=== PATIENT | female | born 2005 | race Caucasian/White ===

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

== ENCOUNTER 2024-12-06 00:20 | Emergency (ER) | payer MEDICAID, SELFPAY ==
[2024-12-06 00:39] VITALS: BP 132/64; PULSE 54; RESP 16; TEMP 36.6; O2SAT 100; BMI 31.1
[2024-12-06 01:15] LABS: MANUAL DIFF FLAG NO
[2024-12-06 01:17] LABS: Hematocrit 41.1 % (37.0-47.0); Hemoglobin 13.5 g/dl (12.0-16.0); Imm Gran Abs Auto 0.04 X10*3/uL (0.00-0.03); Imm Gran Pct Auto 0.3 % (0.0-0.4); Lymphocytes Absolute Auto 3.2 X10*3/uL (1.2-4.9); Mean Corpuscular HGB Conc 32.8 g/dl (31.0-35.0); Mean Corpuscular Hemoglobin 28.1 pg (27.0-33.0); Mean Corpuscular Volume 85.4 fL (80.0-98.0); NRBC Abs Auto 0.000 X10*3/uL (0.0-0.012); NRBC Pct Auto 0.0 /100WBC (0.0-0.2); Platelet Count 330 X10*3/uL (160-400); Red Blood Count 4.81 X10*6/uL (4.20-5.50); White Blood Count 13.1 X10*3/uL (4.8-10.8)
[2024-12-06 01:39] LABS: Alanine Aminotransferase 12 U/L (0-31); Albumin Level 4.6 g/dL (3.5-5.0); Alkaline Phosphatase 118 U/L (39-117); Anion Gap 14 (12-20); Aspartate Amino Transferase 20 U/L (5-31); Blood Urea Nitrogen 8 mg/dL (9-16); Calcium 9.3 mg/dL (8.4-10.2); Carbon Dioxide 25 mmol/L (22-29); Chloride 106 mmol/L (96-108); Creatinine Clr Calc Pharmacy 125.0; Estimated Glomerular Filt Rate > 60; Lipase 12 U/L (8-78); Potassium 3.8 mmol/L (3.3-5.1); Sodium 141 mmol/L (135-145); Total Protein 7.3 g/dL (6.5-8.0)
--- NOTE | 2024-12-06 02:07 | PC.NURSE ---
PT a/ox4, resting quietly in no acute distress. PT comes from waiting room endorsing nausea/vomiting for a few weeks, states she hasn't gotten her period since september concerned she is . HCG negative, WBC elevated. Provided pt urine cup for sample. PT ambulating to the bathroom , gait steady.
[2024-12-06 02:25] LABS: Appearance Urine Clear; Glucose Urine UA Negative (Negative); PH 5.5 (5.0-9.0); Specific Gravity - Urine 1.020 (1.005-1.025); UMIC TRIGGER UACC YES
--- NOTE | 2024-12-06 03:58 | ED.NAVMDI ---
HPI - Nausea/Vomiting/Diarrhea General Chief complaint: Nausea/Vomiting/Diarrhea Stated complaint: nauseous Time Seen by Provider: 12/06/24 03:32 Source: patient Mode of arrival: ambulatory Limitations: no limitations and physical limitation History of Present Illness ED Provider: Dr. Jocy Cano HPI Narrative: 19-year-old female with history of irregular menstrual cycles presenting with nausea and vomiting ongoing for the last 2 weeks or so. Describes associated lower abdominal cramping and fatigue. No reported diarrhea or constipation. Admits she has not had true periods since the middle of September. She did take a test which was negative. States before that she had not had a period in several months. Denies associated fever, cough or cold-type symptoms, chest pain, difficulty breathing, lower extremity edema or pain, known sick contacts, questionable food intake, recent travel. Related Data Previous Rx's ?Medication ?Instructions ?Recorded dicyclomine 20 mg tablet 20 mg PO TID #10 tabs 12/06/24 famotidine 20 mg tablet (Pepcid) 20 mg PO DAILY #30 tabs 12/06/24 ondansetron 4 mg disintegrating 4 mg PO Q8H PRN nausea and 12/06/24 tablet vomiting #10 tabs Allergies Allergy/AdvReac Type Severity Reaction Status Date / Time amoxicillin Allergy Hives Verified 12/06/24 00:44 Review of Systems Review of Systems: as per HPI, full review of systems performed and negative but for the above mentioned pertinent positives and negatives. [facility] Past Medical History Attestation statement: The following information was validated with the patient. [facility] Narrative: Denies alcohol or illicit substance use. Source: nursing notes reviewed Social History Social History Alcohol intake: current Alcohol intake frequency: holidays/special occasions only Smoked in Last 30 Days: No Use of substances other than those prescribed or required for medical reasons: Yes Substance Use Type: Marijuana Substance Use Frequency: Daily Advance Directives: No Do you have a plan to hurt others: No Plan Physical Exam Exam: Exam: GENERAL: Well-Appearing, conversant, no acute distress. SKIN: Normal skin color for ethnicity, warm, dry, no rashes noted. HEENT:? Normocephalic, atraumatic, no stridor, posterior oropharynx nonerythematous, dentition intact, EOMI. NECK: Soft, supple, full ROM, midline structures nontender, no step-offs, no deformities, no lymphadenopathy. CHEST: Heart regular rate and rhythm, no murmurs, symmetric chest rise and fall. PULMONARY: Clear to auscultation bilaterally, no labored breathing, no wheezes/rhales/rhonchi. ABDOMINAL: Soft, nondistended, nontender, quiet bowel sounds in all quadrants. : Deferred. MUSCULOSKELETAL: Normal tone, full range of motion, no deformities, no peripheral edema. NEURO: Alert and oriented x3, CN II through XII intact, equal strength and sensation bilateral upper and lower extremities, no focal neurologic deficits.? PSYCHIATRIC: Normal affect, fluid speech, good eye contact and appropriate demeanor. Vital Signs: Vital Signs: Last Vital Signs Temp 97.6 F 12/06/24 04:25 Pulse 48 L 12/06/24 04:25 Resp 14 12/06/24 04:25 BP 119/65 12/06/24 04:25 Pulse Ox 98 12/06/24 04:25 O2 Del Method Room Air 12/06/24 04:25 BMI result Body Mass Index 31.1 Medications Administered Discontinued Medications Generic Name Dose Route Start Last Admin Trade Name Freq PRN Reason Stop Dose Admin Dicyclomine HCl 20 mg 12/06/24 03:57 12/06/24 04:10 Dicyclomine Hcl 10 Mg Capsule PO 12/06/24 03:58 20 mg ONCE ONE Administration Famotidine 20 mg 12/06/24 03:57 12/06/24 04:10 Famotidine 20 Mg Tablet PO 12/06/24 03:58 20 mg ONCE ONE Administration Ondansetron HCl 4 mg 12/06/24 03:57 12/06/24 04:10 Ondansetron Odt 4 Mg Tab.Rapdis TRANSLINGU 12/06/24 03:58 4 mg ONCE ONE Administration Medical Decision Making Medical Decision Making MDM Narrative: Patient presents today with a chief complaint of vomiting. Differential diagnosis includes surgical emergency such as obstruction, enteritis, hyperglycemia, acidosis, food or drug ingestion, pancreatitis, CVA, allergic reaction such as anaphylaxis, cannabis hyperemesis syndrome or cyclic vomiting syndrome, among many others.? Patient is not showing signs of acute dehydration or hemodynamic instability.? They are having associated abdominal pain. ? Broad-based work-up was initiated based on above history and physical exam. Workup reassuring today. No evidence of obstruction, severe infection. She is significantly improved after zofran, bentyl and pepcid. Clinical picture is consistent with gastritis vs GERD. Using shared decision making, plan for discharge home to follow-up with primary care and/or specialist. Patient understands and agrees with plan for discharge. Discharged home in stable condition. Differential Diagnosis Differential Diagnoses: The differential diagnosis associated with the presentation includes (as above) Admission/Observation Consideration of admission/observation: Escalation of care including admission/observation considered Lab Data MDM Lab Attestation statement: I reviewed the patient's lab results. 12/06/24 01:09 12/06/24 01:09 Labs: Lab Results 12/06/24 12/06/24 Range/Units 01:09 02:14 WBC 13.1 H (4.8-10.8) X10*3/uL RBC 4.81 (4.20-5.50) X10*6/uL Hgb 13.5 (12.0-16.0) g/dl Hct 41.1 (37.0-47.0) % MCV 85.4 (80.0-98.0) fL MCH 28.1 (27.0-33.0) pg MCHC 32.8 (31.0-35.0) g/dl RDW 13.3 (11.0-16.0) % Plt Count 330 (160-400) X10*3/uL MPV 10.4 (9.4-12.3) fL Immature Gran % (Auto) 0.3 (0.0-0.4) % Neut % (Auto) 67.9 (45-73) % Lymph % (Auto) 24.6 (20-40) % [place] % (Auto) 6.0 (2-11) % Eos % (Auto) 1.0 (0-4) % Baso % (Auto) 0.2 (0-2) % Lymph # (Auto) 3.2 (1.2-4.9) X10*3/uL [place] # (Auto) 0.8 (0.1-1.2) X10*3/uL Eos # (Auto) 0.1 (0.0-0.4) X10*3/uL Baso # (Auto) 0.0 (0.0-0.2) X10*3/uL Abs Immat Gran (auto) 0.04 H (0.00-0.03) X10*3/uL Absolute Neuts (auto) 8.9 H (2.0-8.3) x10*3/uL Absolute Nucleated RBC 0.000 (0.0-0.012) X10*3/uL Nucleated RBC % (auto) 0.0 (0.0-0.2) /100WBC Sodium 141 (135-145) mmol/L Potassium 3.8 (3.3-5.1) mmol/L Chloride 106 (96-108) mmol/L Carbon Dioxide 25 (22-29) mmol/L Anion Gap 14 (12-20) BUN 8 L (9-16) mg/dL Creatinine 0.69 (0.5-1.4) mg/dL Estim Creat Clear Calc 125.0 Estimated GFR > 60 Random Glucose 90 (60-115) mg/dL Calcium 9.3 (8.4-10.2) mg/dL Total Bilirubin 0.8 (0.0-1.0) mg/dL Direct Bilirubin 0.3 (0.0-0.5) mg/dL AST 20 (5-31) U/L ALT 12 (0-31) U/L Alkaline Phosphatase 118 H (39-117) U/L Total Protein 7.3 (6.5-8.0) g/dL Albumin 4.6 (3.5-5.0) g/dL Lipase 12 (8-78) U/L Beta HCG, Quant < 2 mIU/mL Urine Color Yellow Urine Appearance Clear Urine pH 5.5 (5.0-9.0) Ur Specific [place] 1.020 (1.005-1.025) Urine Protein Negative (Neg-Trace) mg/dL Urine Glucose (UA) Negative (Negative) mg/dL Urine Ketones 40 (Negative) mg/dL Urine Blood Negative (Negative) Urine Nitrite Negative (Negative) Ur Leukocyte Esterase Trace H (Negative) Urine RBC 0-2 (0-2) /HPF Urine WBC 0-5 (0-5) /HPF Ur Squamous Epith Cells 0-2 (0-2) /HPF Urine Bacteria None Seen (None Seen) Hyaline Casts 0-2 (0-2) /LPF Independent Historian Clinical information obtained from an independent historian. History obtained from or confirmed by: Parent Prescription Management I considered prescription management with: Pain Medication Discharge Plan Discharge Clinical Impression: Irregular menses, GERD (gastroesophageal reflux disease), Nausea & vomiting Patient Disposition: Home, Self-Care Instructions: Abnormal (Dysfunctional) Uterine Bleeding (ED), GERD (Gastroesophageal Reflux Disease) (ED) Additional Instructions: Drink plenty of foods over the next several days. Use Zofran for nausea. Use Pepcid for antacid. Return to the emergency department with any new or worsening symptoms including: Worsening abdominal pain despite medications, inability to tolerate food or drink, fevers greater than 100?, any new symptom that concerns you. Prescriptions: New dicyclomine 20 mg tablet 20 mg PO TID Qty: 10 0RF ondansetron 4 mg tablet,disintegrating 4 mg PO Q8H PRN (Reason: nausea and vomiting) Qty: 10 0RF famotidine [Pepcid] 20 mg tablet 20 mg PO DAILY Qty: 30 0RF Interventions: ED Discharge Assessment Last Done: 12/06/24 04:25 Discharge Date/Time: 12/06/24 04:27 Print Language: Serbian
[2024-12-06 04:25] VITALS: BP 119/65; PULSE 48; RESP 14; TEMP 36.4; O2SAT 98
== END 2024-12-06 04:27 | disposition home or self-care (01) ==
PROVIDERS: Emergency Provider Emergency Medicine; PCP Pediatrics
DX: N92.6 Irregular menstruation, unspecified (principal); K21.9 Gastro-esophageal reflux disease without esophagitis; R11.2 Nausea with vomiting, unspecified; R10.30 Lower abdominal pain, unspecified
CPT/HCPCS: 36415; 80053; 81001; 82248; 83690; 84702; 85025; 99283; 99284

== ENCOUNTER 2025-01-24 11:40 | Outpatient (REF) | payer MEDICAID, SELFPAY ==
--- OUTSIDE RECORDS SUMMARY | 2025-01-24 10:45 | XMS_ITS | Encounter Summary ---
Author Organization [employer] Address [address] [place] [address] Care Team Providers Care Physician Vice President Name Role Phone Heather Chambers CNP Primary Care Provider [phone] Reason for Referral * Imaging (Routine) - Authorized Specialty Diagnoses / Procedures Referred By Contac t Referred To Contact Radiology Diagnoses Irregular periods Pelvic pain Procedures Us Pelvis complete Heather Chambers CNP [address] [place] [address] Phone: tel: fax: [address] Phone: tel: fax: Referral ID Status Reason Start Date Expiration Date V isits Requested Visits Authorized [id number] Authorized 01/24/2025 01/24/2026 1 1 * Imaging (Routine) - Authorized Specialty Diagnoses / Procedures Referred By Contac t Referred To Contact Radiology Diagnoses Irregular periods Pelvic pain Procedures US Pelvis Transvaginal Heather Chambers CNP [address] [place] [address] Phone: tel: fax: [address] Phone: tel: fax: Referral ID Status Reason Start Date Expiration Date V isits Requested Visits Authorized [id number] Authorized 01/24/2025 01/24/2026 1 1 * Consultation (Routine) - Authorized Specialty Diagnoses / Procedures Referred By Kyle matthews Referred To Contact Behavioral Health Diagnoses Anxiety Heather Chambers CNP [address] [place] [address] Phone: tel: fax: Referral ID Status Reason Start Date Expiration Date Visits Requested Visits Authorized [id number] Authorized Specialty Services Required 01/24/2025 01/24/2026 1 1 Encounter Details Date Type Department Care Team ([facility] st Contact Info) Description 01/24/2025 10:45 AM EDT Office Visit [facility] [address] [place] [address] Heather Chambers CNP [address] [place] [address] Screening for STD (sexually transmitted disease) (Primary Dx); Encounter for physical examination; Anxiety; Irregular periods; Pelvic pain; PCOS (polycystic ovarian syndrome); Dietary counseling; Exercise counseling; Overweight Social History Tobacco Use Types Packs/Day Years Used Date Smoking Tobacco: Never Passive Smoke Exposure: Never Smokeless Tobacco: Never Tobacco Cessation:Counseling Given: Not Answered Alcohol Use Standard Drinks/Week Comments Yes 0 (1 standard drink = 0.6 oz pur e alcohol) only socially. Depression Answer Date Recorded Patient Health Questionnaire-9 Score 0 09/17/2023 Patient Health Questionnaire-9 Score 0 09/17/2023 Last PHQ-9: Questionnaire Data Not on file 0 09/17/2023 Housing Stability Answer Date Recorded What is your housing situation today? I have chato kaufman 01/17/[address] you li ve. Do you have problems with any of the following? None of the above 01/17/2025 Food Insecurity Answer Date Recorded Within the past 12 months, y ou worried that your food would run out before you got money to buy more: Never True 01/17/2025 Within the past 12 months,th e food you bought just didn't last and you didn't have enough money to get more: Never True 02/2025 Transportation Answer Date Recorded In the past 12 months, has l ack of transportation kept you from medical appts, meetings, work or from getting things needed for daily living? No 01/17/2025 Utilities Answer Date Recorded In the past 12 months, has t he electric, gas, oil or water company threatened to shut off services in your home? No 01/17/2025 Depression Answer Date Recorded Patient Health Questionnaire-2 Score 0 09/17/2023 Internet Access Answer Date Recorded Internet Access Q1 Yes 01/17/2025 Internet Access Q2 Not on file 01/17/2025 Comments No Sex and Gender Information Value Date Recorded Sex Assigned at Female 03/09/2022 10:38 AM EDT Legal Sex Female 10:38 AM EDT Gender Identity Female 03/09/2022 10:38 AM EDT Sexual Orientation Choose not to disclose 2021 10:38 AM EDT documented as of this encounter Last Filed Vital Signs Vital Sign Reading Time Taken Comments Blood Pressure 132/90 01/24/2025 10:51 AM EDT Pulse 78 01/24/2025 10:51 AM EDT Temperature 36.7 C (98.1 F) 01/24/2025 10:51 AM EDT Respiratory Rate 14 01/24/2025 10:51 AM EDT Oxygen Saturation 99% 01/24/2025 10:51 AM EDT Inhaled Oxygen Concentration - - Weight 73.9 kg (163 lb) 01/24/2025 10:51 AM EDT Height 157.5 cm (5' 2 ) 01/24/2025 10:51 AM EDT Body Mass Index 29.81 01/24/2025 10:51 AM EDT documented in this encounter Progress Notes * Heather Chambers CNP - 01/24/2025 10:45 AM EDT Subjective: Verna Fontanez is a 19 y.o. female who presents to the office for a transfer patient visit. Previous PCP Dr. Kala Terrazas. Interim history: Pt seen in [facility] ED 11/2024 for n/v x 2 weeks. Current concerns: Irregular periods, last period in September 2024 experienced severe cramping since December 2024, lasting about a month, unresponsive to Tylenol, resolves on its own.. Reports irregular periods since PCOS diagosis at age 13. Previously used Nexplanon, Lucila, and another control; discontinued due to side effects and ineffectiveness for period regulation. Not currently interested in contraception. Anxiety: Reports daily anxiety, increased frequency over past couple of months, cries every morning, had four anxiety attacks last month while in [place]. - Previously prescribed anxiety medication in high school, discontinued due to drowsiness; only took at night. - Uses cold showers and other non-pharmacologic methods to cope with anxiety. - Denies self-harm and suicidal ideation. Problem List[1] Surgical History[2] Family History[3] Social History Living situation: has safe secure housing Employment/Education: works in senior living Diet/exercise: Substance use: -alcohol none -tobacco none -opioids none Sexual activity: AMAB partner, feels safe in relationship, agrees to STI testing today. Not actively seeking but OK if it happens. Contraception: none Mental health: No data recorded No data recorded Patient's last menstrual period was 09/07/2024. Allergies[4] Review of Systems Vitals: 01/24/25 1051 BP: (!) 132/90 BP Location: Left arm Patient Position: Sitting BP Cuff Size: Adult Pulse: 78 Resp: 14 Temp: 98.1 ??F (36.7 ??C) TempSrc: Oral SpO2: 99% Weight: 163 lb (73.9 kg) Height: 5' 2 (1.575 m) Physical Exam Constitutional: Appearance: Normal appearance. She is normal weight. HENT: Head: Normocephalic and atraumatic. Eyes: Extraocular Movements: Extraocular movements intact. Pupils: Pupils are equal, round, and reactive to light. Cardiovascular: Rate and Rhythm: Normal rate and regular rhythm. Pulses: Normal pulses. Heart sounds: Normal heart sounds. No murmur heard. No friction rub. No gallop. Pulmonary: Effort: Pulmonary effort is normal. No respiratory distress. Breath sounds: Normal breath sounds. No wheezing or rales. Abdominal: General: Abdomen is flat. There is no distension. Palpations: Abdomen is soft. There is no mass. Tenderness: There is no abdominal tenderness. There is no guarding or rebound. Hernia: No hernia is present. Neurological: General: No focal deficit present. Mental Status: She is alert and oriented to person, place, and time. Psychiatric: Mood and Affect: Mood normal. Behavior: Behavior normal. Thought Content: Thought content normal. Judgment: Judgment normal. Assessment & Plan Screening for STD (sexually transmitted disease) Will obtain routine STI/STD screening and call pt with results For routine OBGYN care she would like to be referred externally however she is changing her insurance in 1 month so we will await insurance change until referral is placed. Orders: Chlamydia/N. Gonorrhoeae RNA, TMA, Vaginal HIV-1/2 Antigen and Antibodies, Fourth Generation, with Reflexes; Future Hepatitis C Antibody with Reflex to HCV, RNA, Quantitative, Real-Time PCR; Future RPR (Monitor) with Reflex to Titer; Future Encounter for physical examination 19 y.o female with irregular periods, PCOS, and anxiety. Normal physical exam. Plan to obtain routine bloodwork Plan to refer for vision, she has dentist and is UTD IMMs UTD, she reports she had flu shot already Pap not due until 11/2025, will refer to OBGYN once insurance change finalized Orders: CBC auto differential; Future Basic Metabolic Panel; Future TSH W/Reflex to FT4; Future Hemoglobin A1c; Future Anxiety Today we discussed pharmacologic and nonpharmacologic tx for anxiety Pt would like to be referred to psychotherapy, she is not interested in meds at this time, she willreach out if she needs any additional support Orders: Referral to Behavioral Health; Future Irregular periods Will obtain hcg to r/o Will also obtain lab studies to further evaluate her irregular periods Considered hormonal control for period regulation, pt not interested at this time Orders: hCG, Total, Quantitative; Future US Pelvis Transvaginal; Future Us Pelvis complete; Future Pelvic pain Will obtain STI screening Will obtain repeat pelvic US Will refer to tow motor mechanic as needed. Orders: US Pelvis Transvaginal; Future Us Pelvis complete; Future PCOS (polycystic ovarian syndrome) Plan: -obtain lab studies to further evaluate for metabolic dysfunction. -refer to OBGYN as requested by pt -Recommendations include Lifestyle management is foundational and should be recommended to all patients, regardless of BMI. This includes a balanced diet, regular physical activity, and weight management. No specific diet orexercise regimen has demonstrated superiority; the focus should be on sustainable, healthy behaviors.[2-6] Even modest weight loss (5-10%) can improve metabolic, reproductive, and menstrual outcomes.[1] For pharmacologic management of irregular periods, combined oral contraceptive pills (COCPs) are first-line therapy for those not seeking , as they regulate menstrual cycles, reduce hyperandrogenic symptoms, and provide endometrial protection. Preparations with lower ethinyl estradiol doses and less androgenic progestins are preferred to minimize side effects.[1][3][5] Pt not interested at this time Fertility considerations: For women desiring , letrozole is first-line for ovulation induction, as it is associated with higher live rates compared to clomiphene. Clomiphene (with or without metformin), gonadotropins, or in vitro fertilization are considered as second- and third-lineoptions Dietary counseling Dietary Recommendations: Fruits, vegetables, whole grains, protein foods, and fat-free or low-fat dairy products are healthychoices. Eat different types of protein foods in your diet. This can include seafood, lean meats, poultry, beans, peas, lentils, nuts, seeds, soy products, and eggs. Limit foods and beverages higher in added sugars, saturated fat, and sodium. Exercise counseling Exercise Recommendations: At least 150 minutes of moderate-intensity physical activity per week, or an equivalent combinationof moderate- and vigorous-intensity activity Overweight Today we discussed lifestyle modifications Follow up in about 1 year (around 01/24/2026) for physical . [1] Patient Active Problem List Diagnosis Anxiety PCOS (polycystic ovarian syndrome) [2] No past surgical history on file. [3] Family History Problem Relation Name Age of Onset Diabetes Mother Thyroid disease Mother Diabetes Maternal Grandmother Diabetes Maternal Grandfather [4] Allergies Allergen Reactions Amoxicillin Hives documented in this encounter Miscellaneous Notes * Assessment & Plan Note - Heather Chambers CNP - 01/24/2025 10:45 AM EDT Associated Problem(s): Anxiety Today we discussed pharmacologic and nonpharmacologic tx for anxiety Pt would like to be referred to psychotherapy, she is not interested in meds at this time, she willreach out if she needs any additional support Orders: Referral to Behavioral Health; Future * Assessment & Plan Note - Heather Chambers CNP - 01/24/2025 10:45 AM EDT Associated Problem(s): PCOS (polycystic ovarian syndrome) Plan: -obtain lab studies to further evaluate for metabolic dysfunction. -refer to OBGYN as requested by pt -Recommendations include Lifestyle management is foundational and should be recommended to all patients, regardless of BMI. This includes a balanced diet, regular physical activity, and weight management. No specific diet orexercise regimen has demonstrated superiority; the focus should be on sustainable, healthy behaviors.[2-6] Even modest weight loss (5-10%) can improve metabolic, reproductive, and menstrual outcomes.[1] For pharmacologic management of irregular periods, combined oral contraceptive pills (COCPs) are first-line therapy for those not seeking , as they regulate menstrual cycles, reduce hyperandrogenic symptoms, and provide endometrial protection. Preparations with lower ethinyl estradiol doses and less androgenic progestins are preferred to minimize side effects.[1][3][5] Pt not interested at this time Fertility considerations: For women desiring , letrozole is first-line for ovulation induction, as it is associated with higher live rates compared to clomiphene. Clomiphene (with or without metformin), gonadotropins, or in vitro fertilization are considered as second- and third-lineoptions documented in this encounter Plan of Treatment Pending Results Name Type Priority Associated Diagnoses Date /Time Basic Metabolic Panel Lab Routine Encounter for physical examination 01/24/2025 11:42 AM EDT Scheduled Orders Name Type Priority Associated Diagnoses Orde r Schedule Chlamydia/N. Gonorrhoeae RNA, TMA, Vaginal Microbiology Routine Screening for STD (sexually transmitted disease) Ordered: 01/24/2025 TSH W/Reflex to FT4 Lab Routine Encounter for physical examination Expected: 01/24/2025 (Approximate), Expires: 01/24/2026 HIV-1/2 Antigen and Antibodies, Fourth Generation, with Reflexes Lab Routine Screening for STD (sexually transmitted disease) Expected: 01/24/2025 (Approximate), Expires: 01/24/2026 Hepatitis C Antibody with Reflex to HCV, RNA, Quantitative, Real-Time PCR Lab Routine Screening for STD (sexually transmitted disease) Expected: 01/24/2025, Expires: 01/24/2026 RPR (Monitor) with Reflex to Titer Lab Routine Screening for STD (sexually transmitted disease) Expected: 01/24/2025, Expires: 01/24/2026 hCG, Total, Quantitative Lab Routine Irregular periods Expected: 01/24/2025 (Approximate), Expires: 01/24/2026 US Pelvis Transvaginal Imaging Routine Irregular periods Pelvic pain Expected: 01/24/2025, Expires: 01/24/2026 Us Pelvis complete Imaging Routine Irregular periods Pelvic pain Expected: 01/24/2025, Expires: 01/24/2026 Scheduled Referrals Name Type Priority Associated Diagnoses Order Schedule Referral to Behavioral Health Outpatient Referral Routine Anxiety Expected: 01/24/2025 (Approximate), Expires: 07/24/2026 documented as of this encounter Procedures Procedure Name Priority Date/Time Associated Diagnosis Comments CBC WITH AUTO DIFFERENTIAL Routine 01/24/2025 11:42 AM EDT Encounter for physical examination HEMOGLOBIN A1C Routine 01/24/2025 11:42 AM EDT Encounter for physical examination BASIC METABOLIC PANEL Routine 01/24/2025 11:42 AM EDT Encounter for physical examination documented in this encounter Results * Hemoglobin A1c (01/24/2025 11:42 AM EDT) Hemoglobin A1c 5.1 <6.0 % [facility] Comment:Hemoglobin A1C Refer ence Range Adults: 4.8 - 6.0 % Non diabetic: < 6.0 % Goal: < 7.0 %Additional Action Suggested: > 8.0 %Note: Hemoglobin A1c results are invalid for patients with abnormal amounts of HbF. Blood transfusions may impact the HbA1c concentration in the patient sample. Estimated Average Glucose 100 mg/dL [facility] Comment:eAG = Estimated ave rage glucose which is %A1C expressed asaverage glucose, using the formula of the [id number]-[id number] Glucose study (ADAG), Diabetes Care, Vol.31,#8,2007 Blood Venous blood specimen / Unknown 01/24/2025 11:42 AM EDT 01/24/2025 2:00 PM EDT Heather Chambers [facility] BLOOD ORDERABLES Cassidy l Result [facility] [address] [place] [address] [phone] * CBC auto differential (01/24/2025 11:42 AM EDT) White Blood Count 7.9 4.8 - 10.8 X10*3/uL [facility] Red Blood Count 5.38 4.20 - 5.50 X10*6/uL [facility] Hemoglobin 14.7 12.0 - 16.0 g/dl [facility] Hematocrit 46.4 37.0 - 47.0 % [facility] Mean Corpuscular Volume 86.2 80.0 - 98.0 fL [facility] Mean Corpuscular Hemoglobin 27.3 27.0 - 33.0 pg [facility] Mean Corpuscular HGB Conc 31.7 31.0 - 35.0 g/dl [facility] Red Cell Distribution Width 13.3 11.0 - 16.0 % [facility] Platelet Count 382 160 - 400 X10*3/uL [facility] Mean Platelet Volume 11.3 9.4 - 12.3 fL [facility] Neutrophils Percent Auto 59.9 45 - 73 % [facility] Imm Gran Pct Auto 0.1 0.0 - 0.4 % [facility] Lymphocytes Percent Auto 31.2 20 - 40 % [facility] Monocytes Percent Auto 6.1 2 - 11 % [facility] Eosinophils Percent Auto 2.4 0 - 4 % [facility] Basophils Percent Auto 0.3 0 - 2 % [facility] NRBC Pct Auto 0.0 0.0 - 0.2 /100WBC [facility] Neutrophils Absolute Auto 4.7 2.0 - 8.3 x10*3/uL [facility] Imm Gran Abs Auto 0.01 0.00 - 0.03 X10*3/uL [facility] Lymphocytes Absolute Auto 2.5 1.2 - 4.9 X10*3/uL [facility] Monocytes Absolute Auto 0.5 0.1 - 1.2 X10*3/uL [facility] Eosinophils Absolute Auto 0.2 0.0 - 0.4 X10*3/uL [facility] Basophils Absolute Auto 0.0 0.0 - 0.2 X10*3/uL [facility] NRBC Abs Auto 0.000 0.0 - 0.012 X10*3/uL [facility] Blood Venous blood specimen / Unknown 01/24/2025 11:42 AM EDT 01/24/2025 2:00 PM EDT Heather Chambers [facility] BLOOD ORDERABLES Cassidy l Result Performing Organization Address City/State/[facility] Co de Phone Number [facility] [address] [place] [address] [phone] documented in this encounter Visit Diagnoses Diagnosis Screening for STD (sexually transmitted disease)- Primary Encounter for physical examination Anxiety Anxiety state, unspecified Irregular periods Pelvic pain PCOS (polycystic ovarian syndrome) Polycystic ovaries Dietary counseling Dietary surveillance and counseling Exercise counseling Overweight documented in this encounter Additional Health Concerns Assessment Noted Time PHQ-9 Depression Total Score: 0 09/17/19 24 4:01 PM EDT documented as of this encounter Care Teams Physician Vice President Relationship Specialty Start Date End Date Heather Chambers CNP [address] [place] [id number] PCP - General Family Medicine 01/24/25 documented as of this encounter
[2025-01-24 14:18] LABS: MANUAL DIFF FLAG NO
[2025-01-24 14:30] LABS: Hematocrit 46.4 % (37.0-47.0); Hemoglobin 14.7 g/dl (12.0-16.0); Imm Gran Abs Auto 0.01 X10*3/uL (0.00-0.03); Imm Gran Pct Auto 0.1 % (0.0-0.4); Lymphocytes Absolute Auto 2.5 X10*3/uL (1.2-4.9); Mean Corpuscular HGB Conc 31.7 g/dl (31.0-35.0); Mean Corpuscular Hemoglobin 27.3 pg (27.0-33.0); Mean Corpuscular Volume 86.2 fL (80.0-98.0); NRBC Abs Auto 0.000 X10*3/uL (0.0-0.012); NRBC Pct Auto 0.0 /100WBC (0.0-0.2); Platelet Count 382 X10*3/uL (160-400); Red Blood Count 5.38 X10*6/uL (4.20-5.50); White Blood Count 7.9 X10*3/uL (4.8-10.8)
[2025-01-24 14:37] LABS: Hemoglobin A1C 122.9991 umol/L; Total Hemoglobin (HGBA1C) 3754.8928 umol/L
[2025-01-24 14:55] LABS: Anion Gap 11 (12-20); Blood Urea Nitrogen 6 mg/dL (9-16); Calcium 9.2 mg/dL (8.4-10.2); Carbon Dioxide 28 mmol/L (22-29); Chloride 106 mmol/L (96-108); Estimated Glomerular Filt Rate > 60; Potassium 4.0 mmol/L (3.3-5.1); Sodium 141 mmol/L (135-145)
--- OUTSIDE RECORDS SUMMARY | 2025-01-24 15:04 | XMS_ITS | Clinical Summary ---
Author Organization [employer] Address [address] [facility] [address] [place] [address] Care Team Providers Care Video Production Engineer Name Role Phone Heather Chambers CNP Primary Care Provider [phone] Allergies Active Allergy Reactions Criticality Noted Date Comments Amoxicillin Hives 01/19/2017 Medications chlorhexidine (Peridex) 0.12 % solution RINSE MOUTH WITH 15 ML FOR 30 SECONDS IN THE MORNING AND EVERY EVENING AFTER TOOTHBRUSHING. EXPECTORATE AFTER RINSING. DO NOT SWALLOW 07/26/19 24 Active Acetaminophen Extra Strength 500 MG tablet TAKE 1 TABLET BY MOUTH EVERY 4 TO 6 HOURS NEEDED 07/26/19 24 Active loratadine (Claritin) 10 MG tablet Take 1 tablet (10 mg) by mouth if needed each day for allergies. 90 tablet 09/17/19 24 025 Discontinued Drospirenone (Slynd) 4 MG tablet Take 1 tablet by mouth Once per day. 28 tablet 11 12/02/19 24 025 Discontinued Sodium Fluoride (PreviDent 5000 Booster Plus) 1.1 % paste Please use pea size to brush your teeth twice daily. Spit after brushing. Do not rinse. 112 g 1 12/30/19 24 025 Discontinued sodium chloride ([place] Nasal [place]) 0.65 % nasal sprayIndicatio ns:Viral illness 1 spray each nostril q 1 hour prn congestion 30 mL 2 05/16/19 25 025 Discontinued Active Problems Problem Noted Date Diagnosed Date Anxiety 04/24/2022 Assessment & Plan (01/24/2025 12:45 PM EDT): Today we discussed pharmacologic and nonpharmacologic tx for anxiety Pt would like to be referred to psychotherapy, she is not interested in meds at this time, she will reach out if she needs any additional support Orders: Referral to Behavioral Health; Future PCOS (polycystic ovarian syndrome) 03/02/2019 Overview (04/24/2022): Not underweight, not overweight, no hirsutism. Went >4 mo without menses after menses 10/27, labs sent and c/w PCOS, referred to endo. 03/18/20- [facility] endo- PCOS, patient doesn't want to start OCPs, so given progesterone Rx to be taken x7 days if no period > 3 months, f/u 6 mo. Last Assessment & Plan: They are still thinking about OCPs. Has Progesterone to take if no menses > 3 months. F/u endocrine in ~September. Assessment & Plan (01/24/2025 12:45 PM EDT): Plan: -obtain lab studies to further evaluate for metabolic dysfunction. -refer to OBGYN as requested by pt -Recommendations include Lifestyle management is foundational and should be recommended to all patients, regardless of BMI. This includes a balanced diet, regular physical activity, and weight management. 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 Declined STI testing Follow-up PRN Encounters Date Type Department Care Team Description 01/24/2025 10:45 AM EDT Office Visit [facility] [address] [place] [address] Heather Chambers CNP Screening for STD (sexually transmitted disease) (Primary Dx); Encounter for physical examination; Anxiety; Irregular periods; Pelvic pain; PCOS (polycystic ovarian syndrome); Dietary counseling; Exercise counseling; Overweight 01/24/2025 Travel 01/19/2025 Travel 01/17/2025 Telephone [facility] [address] [place] [address] Summer Rodas MD chart prep 01/17/2025 Patient Outreach [facility] [address] [place], [place] [phone] Summer Rodas MD Pre-visit Planning (SDOH screening negative and Tobacco screening negative) 11/14/2024 Population Health Risk Score [facility] () Department [address] [place] [phone] Provider, Population Health Generic from Last 3 Months Immunizations Immunization Administration Dates Next Due DTaP 02/02/2005 DTaP, Unspecified 03/08/2009, 7,06/26/2005,04/13 HPV 9-Valent 01/19/2017,01/28/2016,11/29/2015 Hep A, Unspecified 01/13/2007 Hep A, ped/adol, 2 dose 05/17/2006 Hep B, Adolescent or Pediatric 06/26/2005,2004 Hep B, Unspecified 04/13/2005,02/02/2005 HiB, unspecified 03/24/2006,06/26/2005, 5 Hib (PRP-T) 02/02/2005 IPV 03/08/2009, 6,04/13/2005,02/02 Influenza injectable quadriv alent preservative free 03/20/2022,02/18/2021,03/04/2020,03/02,01/25/2018,01/19/2017,01/28/2016 ,05/11/2012,03/26/2011,03/17/2010,01/09,02/01/2008,05/17/2006 Influenza, seasonal, injecta ble, preservative free 01/28/2024 MMR 03/08/2009,03/24/2006 Meningococcal MCV4P ACYW-135 12/24/2020,12/03/19 16,11/29/2015 Pfizer Covid-19 Vaccine 12+ 11/04/2020, Pneumococcal Conjugate PCV 13 03/24/2006 ,06/26/2005,04/13/2005,02/02 Tdap 06/27/2023,11/29/2015 Varicella 03/08/2009,03/24/2006 Family History Medical History Relation Name Comments Diabetes Maternal Grandfather Diabetes Maternal Grandmother Diabetes Mother Thyroid disease Mother Relation Name Status Comments Maternal Grandfather Maternal Grandmother Mother Social History Tobacco Use Types Packs/Day Years [...] not to disclose 2021 10:38 AM EDT Last Filed Vital Signs Vital Sign Reading [...] Mass Index 29.81 01/24/2025 10:51 AM EDT Plan of Treatment Health Maintenance Due Date Last Done Comments Disability Screening 2004 Alcohol/Substance Use Screening 2016 Family Planning (PISQ) 11/24/2019 Meningococcal B Vaccine (1 of 2 - Standard) 2020 Dental Prophylaxis 07/01/2024 12/29/2023, 0 10/01/2023, 04/22/2023 Dental Oral Exam 07/02/2024 12/30/2023 Depression Screening 09/16/2024 09/17/2023, 09/17/19 24 Chlamydia and Gonorrhea Screening 11/08/2024 11/09/2023, 09/17/2023, 06/30/2022, Additional history exists Dental X-Ray: Bitewings 01/11/2025 01/11/2024, 12/29 COVID-19 Vaccine ( season) 2025 11/04/2020, 10/14/2020 Postponed from 01/08/2025 (Supply/Drug Shortage) Influenza Vaccine (#1) 2025 , 03/20/2022, 02/18/2021, Additional history exists Postponed from 01/08/2025 (Patient Refused) SDOH Screening 01/17/2026 01/17/2025 Tobacco Screening 01/24/2026 01/24/2025 Dental X-Ray: Full Mouth 12/30/2026 12/30/2023, 06/2023 DTaP/Tdap/Td Vaccines (8 - Td or Tdap) 06/27/2033 06/27/2023, 11/29/2015, 03/08/2009, Additional history exists Zoster Vaccines (1 of 2) 2054 RSV Patients and Patients Aged 60 years or older (1 - 1-dose 75+ series) 11/24/2079 Hepatitis B Vaccines Completed 06/26/2005, 04/13/2005, 02/02/2005, Additional history exists HIB Vaccines Completed 03/24/2006, 06/10, 04/13/2005, Additional history exists Pneumococcal Vaccine: Pediatrics (0 to 5 Years) and At-Risk Patients (6 to 49) Years Completed 03/24/2006, 06/26/2005, 04/13/2005, Additional history exists Hepatitis A Vaccines Completed 01/13/2007, 05/17/19 07 IPV Vaccines Completed 03/08/2009, 06/10, 04/13/2005, Additional history exists HPV Vaccines Completed 01/19/2017, 01/09, 11/29/2015 Meningococcal Vaccine Completed 12/24/2020 , 12/03/2015, 11/29/2015 HIV Screening Completed 06/26/2022 Hepatitis C Screening Completed 06/26/2022 RSV under 20 months Aged Out No longe r eligible based on patient's age to complete this topic Rotavirus Vaccines Aged Out No longer eligible based on patient's age to complete this topic Procedures Procedure Name Priority Date/Time Associated Diagnosis Comments HEMOGLOBIN A1C Routine 01/24/2025 11:42 AM EDT Encounter for physical examination BASIC METABOLIC PANEL Routine 01/24/2025 11:42 AM EDT Encounter for physical examination CBC WITH AUTO DIFFERENTIAL Routine 01/24/2025 11:42 AM EDT Encounter for physical examination URINALYSIS, COMPLETE, WITH REFLEX TO CULTURE Routine 12/06/2024 2:14 AM EDT HCG, TOTAL, QN Routine 12/06/2024 1:09 AM EDT LIPASE Routine 12/06/2024 1:09 AM EDT HEPATIC FUNCTION PANEL Routine 1:09 AM EDT COMPREHENSIVE METABOLIC PANEL Routine 12/06/2024 1:09 AM EDT CBC WITH AUTO DIFFERENTIAL Routine 12/06/2024 1:09 AM EDT BITEWINGS - 4 RADIOGRAPHIC IMAGES Routine 01/11/2024 3:00 PM EDT INTRAORAL - COMPLETE SERIES OF RADIOGRAPHIC IMAGES Routine 12/30/2023 1:45 PM EDT COMPREHENSIVE ORAL EVALUATION - NEW OR ESTABLISHED PATIENT Routine 12/30/2023 1:45 PM EDT PROPHYLAXIS - ADULT Routine 12/29/2023 4 :15 PM EDT CHLAMYDIA/N. GONORRHOEAE RNA, TMA, UROGENITAL Routine 11/09/2023 9:59 AM EDT Encntr screen for infections w sexl mode of transmiss HEPATITIS C AB W/REFL TO HCV RNA, QN, PCR Routine 06/26/2022 2:34 PM EST Breakthrough bleeding on Nexplanon HIV 1/2 ANTIGEN/ANTIBODY, FOURTH GENERATION W/RFL Routine 06/26/2022 2:34 PM EST Breakthrough bleeding on Nexplanon from Last 3 Months or Most Recently Relevant to Health Maintenance Results * CBC auto differential (01/24/2025 11:42 AM EDT) Only the most recent of2 resultswithin the time period is included. White Blood Count 7.9 4.8 - 10.8 X10*3/uL [facility] Red Blood Count 5.38 4.20 - 5.50 X10*6/uL [facility] Hemoglobin 14.7 12.0 - 16.0 g/dl [facility] Hematocrit 46.4 37.0 - 47.0 % [facility] Mean Corpuscular Volume 86.2 80.0 - 98.0 fL [facility] Mean Corpuscular Hemoglobin 27.3 27.0 - 33.0 pg [facility] Mean Corpuscular HGB Conc 31.7 31.0 - 35.0 g/dl [facility] Red Cell Distribution Width 13.3 11.0 - 16.0 % [facility] Platelet Count 382 160 - 400 X10*3/uL [facility] Mean Platelet Volume 11.3 9.4 - 12.3 fL [facility] Neutrophils Percent Auto 59.9 45 - 73 % [facility] Imm Gran Pct Auto 0.1 0.0 - 0.4 % [facility] Lymphocytes Percent Auto 31.2 20 - 40 % [facility] Monocytes Percent Auto 6.1 2 - 11 % [facility] Eosinophils Percent Auto 2.4 0 - 4 % [facility] Basophils Percent Auto 0.3 0 - 2 % [facility] NRBC Pct Auto 0.0 0.0 - 0.2 /100WBC [facility] Neutrophils Absolute Auto 4.7 2.0 - 8.3 x10*3/uL [facility] Imm Gran Abs Auto 0.01 0.00 - 0.03 X10*3/uL [facility] Lymphocytes Absolute Auto 2.5 1.2 - 4.9 X10*3/uL [facility] Monocytes Absolute Auto 0.5 0.1 - 1.2 X10*3/uL [facility] Eosinophils Absolute Auto 0.2 0.0 - 0.4 X10*3/uL [facility] Basophils Absolute Auto 0.0 0.0 - 0.2 X10*3/uL [facility] NRBC Abs Auto 0.000 0.0 - 0.012 X10*3/uL [facility] Blood Venous blood specimen / Unknown 01/24/2025 11:42 AM EDT 01/24/2025 2:00 PM EDT [facility] LAB BLOOD ORDERABLES Cassidy l Result Performing Organization Address [facility] de Phone Number [facility] [address] [place] [phone] * Hemoglobin A1c (01/24/2025 11:42 AM EDT) Hemoglobin A1c 5.1 <6.0 % [facility] Comment:Hemoglobin A1C Refer ence Range Adults: 4.8 - 6.0 % Non diabetic: < 6.0 % Goal: < 7.0 %Additional Action Suggested: > 8.0 %Note: Hemoglobin A1c results are invalid for patients with abnormal amounts of HbF. Blood transfusions may impact the HbA1c concentration in the patient sample. Estimated Average Glucose 100 mg/dL [facility] Comment:eAG = Estimated ave rage glucose which is %A1C expressed asaverage glucose, using the formula of the V5X-NqzicdcRfrdait Glucose study (ADAG), Diabetes Care, Vol.31,#8,Dec. 2007 Blood Venous blood specimen / Unknown 01/24/2025 11:42 AM EDT 01/24/2025 2:00 PM EDT [facility] LAB BLOOD ORDERABLES Cassidy l Result Performing Organization Address [facility] Co de Phone Number [facility] [address] [place] [phone] * (ABNORMAL) Urinalysis, Complete, with Reflex to Culture (12/06/2024 2:14 AM EDT) Color Urine Yellow [facility] Appearance Urine Clear [facility] PH 5.5 5.0 - 9.0 [facility] Glucose Urine UA Negative Negative mg/dL [facility] Urine Blood Negative Negative [facility] Specific [place] - Urine 1.020 1.005 - 1.025 [facility] Urine Protein Negative Neg-Trace mg/dL [facility] Urine Ketones 40 Negative mg/dL [facility] Nitrite Urine Negative Negative [facility] Leukocyte Esterase Urine Trace(A) Negative [facility] RBC Urine 0-2 0 - 2 /HPF [facility] Urine WBC 0-5 0 - 5 /HPF [facility] Urine Squamous Epithelial Cell 0-2 0 - 2 /HPF [facility] Urine Bacteria None Seen None Seen [facility] Hyaline Casts, Urine 0-2 0 - 2 /LPF [facility] 12/06/2024 2:14 AM EDT 12/06/2024 2:17 AM EDT Narrative [facility] - 12/06/2024 2:33 AM EDT Urine, Clean Catch us Generic External Data Provider LAB URINE ORDERAB LES Final Result Performing Organization Address City/State/[facility] Co de Phone Number [facility] [address] [place] [phone] * hCG, Total, Quantitative (12/06/2024 1:09 AM EDT) HCG Quantitative <2 mIU/mL [facility] Comment:Weeks post LMP Appro ximate hCG(Last Menstrual Period) Range (mIU/ml)3 - 4 weeks 9 - 1304 - 5 weeks 75 - 2,6005 - 6 weeks 850 - 20,8006 - 7 weeks 4000 - 100,2007 - 12 weeks 11,500 - 289,63860 - 16 weeks 18,300 - 137,96642 - 29 weeks (2nd trimester) 1,400 - 53,49129 - 41 weeks (3rd trimester) 940 - 60,000The Lujan B- hCG assay is used for the early detection ofpregnancy; it cannot be used to diagnose any conditionunrelated to . If a B-hCG level is not supportedby the clinical evidence, results should be confirmed by analternative method (qualitative urine hCG, for example). 12/06/2024 1:09 AM EDT 12/06/2024 1:15 AM EDT Generic External Data Provider LAB BLOOD ORDERAB LES Final Result Performing Organization Address [facility] de Phone Number [facility] [address] [place] [phone] * Lipase (12/06/2024 1:09 AM EDT) Lipase 12 8 - 78 U/L [facility] 12/06/2024 1:09 AM EDT 12/06/2024 1:15 AM EDT Generic External Data Provider LAB BLOOD ORDERAB LES Final Result Performing Organization Address [facility] Phone Number [facility] [address] [place] [phone] * Hepatic Function Panel (12/06/2024 1:09 AM EDT) Bilirubin, Direct 0.3 0.0 - 0.5 mg/dL [facility] 12/06/2024 1:09 AM EDT 12/06/2024 1:15 AM EDT Generic External Data Provider LAB BLOOD ORDERAB LES Final Result Performing Organization Address [facility] de Phone Number [facility] [address] [place] [phone] * (ABNORMAL) Comprehensive Metabolic Panel (12/06/2024 1:09 AM EDT) Sodium 141 135 - 145 mmol/L [facility] Potassium 3.8 3.3 - 5.1 mmol/L [facility] Chloride 106 96 - 108 mmol/L [facility] Carbon Dioxide 25 22 - 29 mmol/L [facility] Anion Gap 14 12 - 20 [facility] Urea Nitrogen (BUN) 8(L) 9 - 16 mg/dL [facility] Creatinine, Serum 0.69 0.5 - 1.4 mg/dL [facility] Creatinine Clr Calc Pharmacy 125.0 [facility] Comment:Provided height and weight: 157.48 cm,77.111 kg.eGFR (calculated from the MDRD study equation) and eCrCl(calculated from the Cockcroft-Gault equation) are based ondifferent parameters and may not yield comparable results.If eCrCl result is absurd, please check patient'sheight/weight. Estimated Glomerular Filt Rate >60 [facility] Comment:Chronic Kidney Disea se: Estimated GFR < 60 mL/min/1.68u9Fggjrb Kidney Disease: Estimated GFR < 15 mL/min/1.73m2 Glucose 90 60 - 115 mg/dL [facility] Calcium 9.3 8.4 - 10.2 mg/dL [facility] Bilirubin, Total 0.8 0.0 - 1.0 mg/dL [facility] Aspartate Amino Transferase 20 5 - 31 U/L [facility] Alanine Aminotransferase 12 0 - 31 U/L [facility] Total Protein 7.3 6.5 - 8.0 g/dL [facility] Albumin Level 4.6 3.5 - 5.0 g/dL [facility] Alkaline Phosphatase 118(H) 39 - 117 U/L [facility] 12/06/2024 1:09 AM EDT 12/06/2024 1:15 AM EDT us Generic External Data Provider LAB BLOOD ORDERAB LES Final Result [facility] [address] [place] [phone] * Chlamydia/N. Gonorrhoeae RNA, TMA, Urogenitial (11/09/2023 9:59 AM EDT) CT PCR NOT DETECTED Not Detect. [facility] Comment:A not detected test result does not exclude the possibilityof infection because test results can be affected byimproper specimen collection, concurrent antibiotic therapy,or the number of organisms in the specimen which may bebelow the sensitivity of the test. As with many diagnostictests, results from the Xpert CT/NG assay should beinterpreted in conjunction with other laboratory andclinical data available to the clinician.Xpert CT/NG performance has not been evaluated in patientsless than 14 years of age. The assay should not be used forthe evaluationof suspected sexual abuse or for other medico-legalindications. Additional testing is recommended in anycircumstance when false positive or false negative resultscould lead to adverse medical, social or psychologicalconsequences. NG PCR NOT DETECTED Not Detect. [facility] Comment:A not detected test result does not exclude the possibilityof infection because test results can be affected byimproper specimen collection, concurrent antibiotic therapy,or the number of organisms in the specimen which may bebelow the sensitivity of the test. As with many diagnostictests, results from the Xpert CT/NG assay should beinterpreted in conjunction with other laboratory andclinical data available to the clinician.Xpert CT/NG performance has not been evaluated in patientsless than 14 years of age. The assay should not be used forthe evaluationof suspected sexual abuse or for other medico-legalindications. Additional testing is recommended in anycircumstance when false positive or false negative resultscould lead to adverse medical, social or psychologicalconsequences. Swab (Vaginal Swab) 11/09/2023 9:59 AM EDT 11/09/2023 4:55 PM EDT Narrative [facility] - 11/10/2023 2:33 AM EDT Vaginal us Keisha OWEN LAB MICROBIOLOGY - GENERA L ORDERABLES Final Result [facility] [address] [place], [place] [phone] * Hepatitis C Antibody with Reflex to HCV, RNA, Quantitative, Real-Time PCR (06/26/2022 2:34 PM EST) Hepatitis C Antibody NON-REACT LOGAN NON-REACT LOGAN [employer] [place] [employer] Index 0.07 <1.00 [employer] [place] [employer] Comment: HCV antibody was non-reactive. There is no laboratory evidence of HCV infection. In most cases, no further action is required. However, if recent HCV exposure is suspected, a test for HCV RNA (test code 17139) is suggested. For additional information please refer to http://[employer]ongda/faq/AJQ24f4 (This link is being provided for informational/ educational purposes only.) Blood Venous blood specimen / Unknown 06/26/2022 2:34 PM EST 06/26/2022 2:35 PM EST Narrative [facility] - 06/29/2022 1:23 PM EST FASTING:NO FASTING: NO Summer Moy MD LAB BLOOD ORDERABLES Final Result [facility] [address] [facility], [facility], [place] [phone] [employer] [place] [employer] [address] [facility], ([address]) [place] [phone] * HIV-1/2 Antigen and Antibodies, Fourth Generation, with Reflexes (06/26/2022 2:34 PM EST) HIV Antigen/Antibody, 4th Generation NON-REAC TIVE NON-REAC TIVE [employer] [place] [employer] Comment: HIV-1 antigen and HIV-1/HIV-2 antibodies were not detected. There is no laboratory evidence of HIV infection. PLEASE NOTE: This information has been disclosed to you from records whose confidentiality may be protected by state law. If your state requires such protection, then the state law prohibits you from making any further disclosure of the information without the specific written consent of the person to whom it pertains, or as otherwise permitted by law. A general authorization for the release of medical or other information is NOT sufficient for this purpose. For additional information please refer to http://[employer]/faq/PZA995 (This link is being provided for informational/ educational purposes only.) The performance of this assay has not been clinically validated in patients less than 2 years old. Blood Venous blood specimen / Unknown 06/26/2022 2:34 PM EST 06/26/2022 2:35 PM EST Narrative [facility] - 06/29/2022 1:23 PM EST FASTING:NO FASTING: NO Summer Moy MD LAB BLOOD ORDERABLES Final Result [facility] [address], [place] [address] [employer] [facility] [address] [facility], ([address]) [place] [phone] from Last 3 Months or Most Recently Relevant to Health Maintenance Insurance [employer] [employer] Care Teams Video Production Engineer Relationship Specialty Start Date End Date Heather Chambers CNP [address] [place] [phone] PCP - General Family Medicine 01/24/25
--- OUTSIDE RECORDS SUMMARY | 2025-01-24 15:04 | XMS_ITS | Encounter Summary ---
Author Organization [facility] Address [address] [place] [id number] Phone Care Team Providers Care Residential Living Assistant Name Role Phone Unavailable Primary Care Provider Unavailabl e Encounter Details Date Type Department Care Team (Late st Contact Info) Description 06/08/2016 Documentation [facility] [place] [facility] [address] [place] [address] Family Medicine, Physician [address] [place] [address] Social History Tobacco Use Types Packs/Day Years Used Date Smoking Tobacco: Never Comments:Never smoker Comments Unknown Sex and Gender Information Value Date Recorded Sex Assigned at Female 03/02/2019 3:58 PM EDT Legal Sex Female 5:21 PM EDT Gender Identity Female 03/02/2019 3:58 PM EDT Sexual Orientation Straight 03/02/2019 3: 58 PM EDT documented as of this encounter Plan of Treatment Not on file documented as of this encounter Visit Diagnoses Not on filedocumented in this encounter
--- OUTSIDE RECORDS SUMMARY | 2025-01-24 15:04 | XMS_ITS | Encounter Summary ---
Author Organization [employer] Address [address] [place] [address] Care Team Providers Care Printing Screen Assembler Name Role Phone Summer Rodas MD Primary Care Provider [phone] Encounter Details Date Type Department Care Team (Latest Contact Info) Description 01/19/2025 Travel Social History Tobacco Use Types Packs/Day Years Used Date Smoking Tobacco: Never Passive Smoke Exposure: Never Smokeless Tobacco: Never Alcohol Use Standard Drinks/Week Comments Yes 0 [...] AM EDT documented as of this encounter Plan of Treatment Not on file documented as of this encounter Visit Diagnoses Not on filedocumented in this encounter Additional Health Concerns Assessment Noted Time PHQ-9 Depression Total Score: 0 09/17/19 24 4:01 PM EDT documented as of this encounter Care Teams Printing Screen Assembler Relationship Specialty Start Date End Date Summer Rodas MD [address] [place] [address] PCP - General Pediatrics 09/06/20 01/23/25 documented as of this encounter
--- OUTSIDE RECORDS SUMMARY | 2025-01-24 15:04 | XMS_ITS | Clinical Summary ---
Author Organization [facility] Address [address] [place] [address] Phone Care Team Providers Care Crew Boss Name Role Phone Unavailable Primary Care Provider Unavailabl e Allergies Active Allergy Reactions Criticality Noted Date Comments Amoxicillin Hives 01/19/2017 Medications Emollient (CeraVe) creamIndicatio ns:Intrinsic eczema Apply 1 Units topically daily. To be mixed with triamcinolone 0.025% cream to make fluff 453 g 1 0 Active triamcinolone 0.025 % creamIndicatio ns:Intrinsic eczema Apply topically daily. Mix as directed with CeraVe moisturizer to make Fluff 80 g 1 0 Active triamcinolone 0.1 % ointmentIndica tions:Intrinsi c eczema Apply topically 2 (two) times a day as needed (eczema on your body (not for your face)). Stop when skin feels smooth. 15 g 1 0 Active Active Problems Problem Noted Date Diagnosed Date Need for case management follow-up 04/19/2020 Overview (04/19/2020): Needs routine teen urine screen Mild scoliosis 03/02/2019 Overview (04/19/2020): Up to 5 degrees on scoliometer 02/25, less 04/28, and likely due to small leg length discrepancy (right hip higher than left). Assessment & Plan (03/02/2019 3:56 PM EDT): Will follow clinically. PCOS (polycystic ovarian syndrome) 03/02/2019 Overview (04/18/2020): Not underweight, not overweight, no hirsutism. Went >4 mo without menses after menses 10/27, labs sent and c/w PCOS, referred to endo. 03/18/20- [facility] endo- PCOS, patient doesn't want to start OCPs, so given progesterone Rx to be taken x7 days if no period > 3 months, f/u 6 mo. Assessment & Plan (04/19/2020 2:59 PM EST): They are still thinking about OCPs. Has Progesterone to take if no menses > 3 months. F/u endocrine in ~September. Assessment & Plan (03/02/2019 4:28 PM EDT): Following. If goes >90 days without a period, I'd like to do labs (mom aware). Discussed hormonal treatment, will hold off for now. To f/u if not improving or >90 days between menses. Allergic rhinitis 01/19/2017 Overview (04/19/2020): Allergies in spring. Uses OTC Claritin prn. Assessment & Plan (01/19/2017 4:21 PM EDT): Take Claritin or Zyrtec as needed during the spring. Eczema 07/02/2009 Overview (03/02/2019): Sensitive Skin care. Fluff ordered 02/25. Immunizations Immunization Administration Dates Next Due DTaP / Hep B / IPV 06/26/2005,04/13/2005, 005 DTaP 5 03/08/2009,05/17/2006 H1N1 07/02/2009,03/08/2009 HPV Vaccine 9 Valent 01/19/2017,01/28/2016,11/28 Hep A, ped/adol 01/13/2007,05/17/2006 Hep B, ped/adol 2004 Hib (HbOC) 04/13/2005,02/02/2005 Hib (PRP-T) 03/24/2006,06/26/2005 IPV 03/08/2009 Influenza Split 03/17/2010 Influenza, injectable, quadr ivalent, preservative free 03/04/2020,03/02/2019,01/25/2018,01/19,01/28/2016 Influenza, injectable, trivalent 02/05/2009,01/09,05/17/2006 Influenza, intranasal, trivalent 05/11/2012,03/10 MMR 03/08/2009 MMRV 03/24/2006 Meningococcal Conj (Menactra) MCV4P 11/29/2015 Pneumococcal Conjugate 03/24/2006,2005,04/13/2005,02/02 Tdap 11/29/2015 Varicella 03/08/2009 Family History Medical History Relation Name Comments Vitiligo Father Antonio Colon cancer Maternal Grandfather Heart disease (Premature) Mother Luisito Rh eumatic fever No Known Problems Sister Carlos Eduardo Relation Name Status Comments Father Antonio Alive Father: Alive a nd well Maternal Grandfather Alive Materna l uncle: Asthma Maternal Grandmother Other Materna l grandmother: Arthritis Mother Luisito Alive Mother: Alive a nd well Paternal Grandfather Alive Paterna l grandfather: AIDS Sister Carlos Eduardo Alive Sister: Alive a nd well Social History Tobacco Use Types Packs/Day Years Used Date Smoking Tobacco: Never Smokeless Tobacco: Never Comments:Never smoker Hunger/Food Answer Date Recorded In the last 12 months, did y ou or your family ever eat less than you felt you should because there wasn't enough money for food? No 04/19/2020 Stable Housing Answer Date Recorded Are you worried that in the next 2 months you may not have stable housing? No 04/19/2020 Transportation Concerns Answer Date Rec orded In the last 12 months, have you or your family ever had to go without healthcare because you didn't have a way to get there? No 04/19/2020 Hazards in Home Answer Date Recorded Think about the place you li ve. Do you have problems with any of the following? Pests (mice or roaches), mold, no/not working smoke detectors, water leaks, no window guards. No 2019 Financing Utilities Answer Date Recorde d In the last 12 months, has t he electric, gas, oil, or water company threatened to shut off your services in your home? No 04/19/2020 Safety at Home Answer Date Recorded Are you or your family worried about feeling saf e in your home? No 04/19/2020 Outside Support Answer Date Recorded Do you feel that you need mo re support from other people or programs to help you care for yourself or your family? No 04/19/2020 Understanding Health Concerns Answer Da te Recorded Do you need help understandi ng your or your child's healthcare needs (diagnosis, medications, plan, etc.)? No 04/19/2020 Financing Health Concerns Answer Date R ecorded In the last 12 months, was t here a time when your child needed to see a doctor or get medications or supplies but could not because of cost? No 04/19/2020 Missing School or Work Answer Date Pedrito rded Did you or your child miss s chool or work because of a health problem that could have been avoided? No 04/19/2020 Comments No Sex and Gender Information Value Date Recorded Sex Assigned at Female 03/02/2019 3:58 PM EDT Legal Sex Female 5:21 PM EDT Gender Identity Female 03/02/2019 3:58 PM EDT Sexual Orientation Straight 03/02/2019 3: 58 PM EDT Last Filed Vital Signs Vital Sign Reading Time Taken Comments Blood Pressure 114/72 04/19/2020 2:28 PM EST Pulse 82 04/19/2020 2:28 PM EST Temperature 35.8 C (96.4 F) 04/19/2020 2:28 PM EST Respiratory Rate - - Oxygen Saturation 98% 09/10/2010 12:00 AM EDT Inhaled Oxygen Concentration - - Weight 51.8 kg (114 lb 3.2 oz) 04/19/2020 2:28 P M EST Height 157.5 cm (5' 2 ) 04/19/2020 2:28 PM EST Body Mass Index 20.89 04/19/2020 2:28 PM EST Plan of Treatment Health Maintenance Due Date Last Done Comments Men B Vaccine (1 of 2 - Standard) 2020 Influenza Vaccines (#1) 2024 03/04/20 20, 03/02/2019, 01/25/2018, Additional history exists COVID-19 Vaccine ( - season) 2025 DTaP,Tdap,and Td Vaccines (7 - Td or Tdap) 11/28/2025 11/29/2015, 03/08/2009, 05/17/2006, Additional history exists Hepatitis B Vaccines Completed 06/26/2005, 04/13/2005, 02/02/2005, Additional history exists HIB Vaccines Completed 03/24/2006, 06/10, 04/13/2005, Additional history exists Pneumococcal Vaccine Completed 03/24/2006, 06/26/2005, 04/13/2005, Additional history exists Hepatitis A Vaccines Completed 01/13/2007, 05/17/19 07 IPV Vaccines Completed 03/08/2009, 06/10, 04/13/2005, Additional history exists MMR Vaccines Completed 03/08/2009, 03/24/2006 Varicella Vaccines Completed 03/08/2009, 03/24/2006 Meningococcal Vaccine Aged Out 11/29/2015 No nam karine eligible based on patient's age to complete this topic HPV Vaccines Completed 01/19/2017, 01/09, 11/29/2015 Insurance [facility] NON PCC
--- OUTSIDE RECORDS SUMMARY | 2025-01-24 15:04 | XMS_ITS | Encounter Summary ---
Author Organization [facility] Address [address] [place] [address] Phone Care Team Providers Care Respiratory Therapy Director Name Role Phone Unavailable Primary Care Provider Unavailabl e Encounter Details Date Type Department Care Team (Late st Contact Info) Description 12/24/2016 Conversion Encounter [facility] - [address] [address] Social History Tobacco Use Types Packs/Day Years [...]
--- OUTSIDE RECORDS SUMMARY | 2025-01-24 15:04 | XMS_ITS | Encounter Summary ---
Author Organization [employer] Address [address] [place] [address] Care Team Providers Care Marketing Development Specialist Name Role Phone Heather Chambers CNP Primary Care Provider [phone] Encounter Details Date Type Department Care Team (Latest Contact Info) Description 01/24/2025 Travel Social History Tobacco Use Types Packs/Day [...] documented as of this encounter Care Teams Marketing Development Specialist Relationship Specialty Start Date End Date Heather Chambers CNP [address] [place] [address] PCP - General Family Medicine 01/24/25 documented as of this encounter
[2025-01-25 06:27] LABS: HIV Num 1 0.04 S/CO (0.00-0.99); ~HepC Num1 0.22 S/CO (0.00-0.79); ~Hepatitis C Antibody Nonreactive (Nonreactive)
== END 2025-01-24 11:41 | disposition home or self-care (01) ==
LOC: HO.CHCLDS 11:40
DX: Z00.00 Encounter for general adult medical examination without abnormal findings (principal); Z11.3 Encounter for screening for infections with a predominantly sexual mode of transmission; Z11.4 Encounter for screening for human immunodeficiency virus [HIV]; Z11.59 Encounter for screening for other viral diseases; N92.6 Irregular menstruation, unspecified
CPT/HCPCS: 36415; 80048; 83036; 84443; 84702; 85025; 86592; 86803; 87389